=== PATIENT | male | born 1975 | race Two or more races ===

== ENCOUNTER 2018-05-25 21:51 | Emergency (ER) | payer MEDICAID ==
[~2018-05-25] VITALS: Ht 172.7 cm; Wt 59.9 kg
[~2018-05-25 21:51] MED LIST: CYCLOBENZAPRINE10 MG PO; HYDROCODONE/ACE1 TA2 PO; PERCOCET1 TA2 PO; PERCOCET1 TA5 PO
[2018-05-25 22:31] VITALS: Ht 172.7 cm; Wt 59.9 kg
[2018-05-26 00:26] VITALS: BP 135/90
== END 2018-05-26 00:26 | disposition home or self-care (01) ==
LOC: ED 21:51
DX: J40 Bronchitis, not specified as acute or chronic (principal); F17.210 Nicotine dependence, cigarettes, uncomplicated
CPT/HCPCS: J1100

== ENCOUNTER 2018-10-28 07:26 | Emergency (ER) | payer MEDICAID ==
[~2018-10-28] VITALS: Ht 172.7 cm; Wt 73.9 kg
[2018-10-28 07:36] VITALS: Ht 172.7 cm; Wt 73.9 kg
[2018-10-28 08:24] LABS: BASOPHIL % 0.7 % (0-2); PLATELET COUNT 204 x10^3mcL (130-400); RED CELL DISTRIBUTION WIDTH 12.6 % (11.5-14.5)
[2018-10-28 08:28] LABS: CALCIUM 8.6 mg/dL (8.5-10.1); CARBON DIOXIDE 24.9 mmol/L (21-32); CHLORIDE SERUM 102 mmol/L (98-107); CREATININE SERUM 1.1 mg/dL (0.7-1.3); GFR1 > 60 mL/min; GLUCOSE SERUM 98 mg/dL (74-106); SODIUM SERUM 137 mmol/L (136-145)
[2018-10-28 08:41] LABS: UA SPECIFIC GRAVITY 1.025 (1.005-1.035); microscopic required? YES; urine erythrocyte 2+ (NEGATIVE)
[2018-10-28 10:48] VITALS: BP 115/80
== END 2018-10-28 10:50 | disposition home or self-care (01) ==
LOC: ED 07:26
PROVIDERS: Emergency Medicine
DX: J18.8 Other pneumonia, unspecified organism (principal); F17.210 Nicotine dependence, cigarettes, uncomplicated; Z71.6 Tobacco abuse counseling
CPT/HCPCS: 87804; 99406; J0696; J1100; J1885; J7030; J7060; Q0092

== ENCOUNTER 2019-05-07 22:22 | Emergency (ER) | payer MEDICAID ==
[~2019-05-07] VITALS: Ht 167.6 cm; Wt 77.6 kg
[2019-05-07 22:32] VITALS: Ht 167.6 cm; Wt 77.6 kg
[2019-05-07 23:49] LABS: BASOPHIL % 0.7 % (0-2); PLATELET COUNT 209 x10^3mcL (130-400); RED CELL DISTRIBUTION WIDTH 13.6 % (11.5-14.5)
[2019-05-07 23:56] LABS: CARBON DIOXIDE 28.2 mmol/L (21-32); CHLORIDE SERUM 106 mmol/L (98-107); CREATININE SERUM 0.9 mg/dL (0.7-1.3); GFR1 > 60 mL/min; GLUCOSE SERUM 90 mg/dL (74-106); POTASSIUM SERUM 4.3 mmol/L (3.5-5.1); SODIUM SERUM 143 mmol/L (136-145)
[2019-05-08 00:01] LABS: ALBUMIN 4.5 g/dL (3.4-5.0); ALKALINE PHOSPHATASE 49 U/L (46-116); ALT/SGPT 60 U/L (16-63); AST/SGOT 26 U/L (15-37); BILIRUBIN TOTAL 0.4 mg/dL (0.20-1.00); TOTAL PROTEIN, SERUM 8.1 g/dL (6.4-8.2)
[2019-05-08 00:30] VITALS: BP 134/93
== END 2019-05-08 00:30 | disposition home or self-care (01) ==
LOC: ED 22:22
PROVIDERS: Emergency Medicine
DX: R04.0 Epistaxis (principal); R05 Cough
CPT/HCPCS: 36415

== ENCOUNTER 2019-05-22 20:43 | Emergency (ER) | payer OTHER ==
[~2019-05-22] VITALS: Ht 172.7 cm; Wt 78.1 kg
[2019-05-22 21:04] VITALS: Ht 172.7 cm; Wt 78.1 kg
[2019-05-22 22:12] LABS: BASOPHIL % 0.4 % (0-2); PLATELET COUNT 197 x10^3mcL (130-400); RED CELL DISTRIBUTION WIDTH 13.2 % (11.5-14.5)
[2019-05-22 22:21] LABS: CALCIUM 8.8 mg/dL (8.5-10.1); CARBON DIOXIDE 27.5 mmol/L (21-32); CHLORIDE SERUM 106 mmol/L (98-107); CREATININE SERUM 0.9 mg/dL (0.7-1.3); GFR1 > 60 mL/min; GLUCOSE SERUM 109 mg/dL (74-106); POTASSIUM SERUM 3.8 mmol/L (3.5-5.1); SODIUM SERUM 142 mmol/L (136-145)
[2019-05-22 22:25] LABS: ALBUMIN 4.2 g/dL (3.4-5.0); ALKALINE PHOSPHATASE 47 U/L (46-116); ALT/SGPT 58 U/L (16-63); AST/SGOT 22 U/L (15-37); BILIRUBIN TOTAL 0.4 mg/dL (0.20-1.00); TOTAL PROTEIN, SERUM 7.4 g/dL (6.4-8.2)
[2019-05-22 23:22] VITALS: BP 114/81
== END 2019-05-22 23:20 | disposition home or self-care (01) ==
LOC: ED 20:43
PROVIDERS: Emergency Medicine
DX: I82.621 Acute embolism and thrombosis of deep veins of right upper extremity (principal)
CPT/HCPCS: 36415; 85378